=== PATIENT | male | born 1990 | race Two or more races ===

== ENCOUNTER → 2019-07-21 | Outpatient (CLI) | payer BC ==
--- NOTE | 2019-07-21 14:18 | US ---
EXAMINATION TYPE: US scrotum with doppler. Grayscale and color Doppler Duplex imaging performed of t he scrotum. DATE OF EXAM: 07/21/2019 COMPARISON: NONE CLINICAL HISTORY: N50.89 Mass of left testicle. Lump on left testicle. EXAM MEASUREMENTS: TESTICLES: Right Testicle: 5.2 x 2.1 x 2.3 cm Left Testicle: 4.9 x 2.1 x 3.3 cm EPIDIDYMIS HEAD: Right Epididymis: .8 x .6 x .6 cm Left Epididymis: .9 x .8 x .7 cm Doppler performed to assess for testicular vascularity; good bilateral color flow and waveforms are s een. There is no evidence of testicular torsion. Presence of hydroceles: No Presence of varicoceles: No IMPRESSION: No distinct abnormality identified. More specifically I do not see left testicular mass.
== END | disposition home or self-care (01) ==
LOC: RADUSWWP 12:55
PROVIDERS: ATTEND Family Medicine
DX: N50.89 Other specified disorders of the male genital organs (principal)
CPT/HCPCS: 76870; 93975

== ENCOUNTER → 2019-09-18 | Outpatient (CLI) | payer BC | END | disposition home or self-care (01) | LOC: LABWHC1 12:00 | PROVIDERS: ATTEND Nurse Practitioner Family | DX: Z03.89 Encounter for observation for other suspected diseases and conditions ruled out (principal) | CPT/HCPCS: U0003; C9803 ==